=== PATIENT | female | born 1975 | race Caucasian/White ===

== ENCOUNTER 2021-04-26 15:07 | Emergency (ER) | payer OTHER ==
[2021-04-26 18:48] LABS: Urine Blood 3+ (Negative); Urine Glucose Negative (Negative); Urine Protein Negative (Negative); Urine Specific Gravity >=1.030 (1.005-1.030); Urine pH 6.5 (5.0-7.0)
--- NOTE | 2021-04-26 19:09 | RAD REPORT ---
EXAM DESCRIPTION: Maite Single View04/26/2021 6:44 pm CLINICAL HISTORY: Cough COMPARISON: none FINDINGS: Curvilinear lucency overlies the fourth anterior right rib. Lungs appear clear of acute infiltrate. Heart is normal size IMPRESSION: Curvilinear lucency overlies fourth anterior right rib. This may represent a nondisplace d fracture and should correlated clinically.
[2021-04-26 19:12] LABS: Barbiturates NEGATIVE (NEGATIVE); Benzodiazepines NEGATIVE (NEGATIVE); Cocaine NEGATIVE (NEGATIVE); METHAMPHETAM POSITIVE (NEGATIVE); Methadone NEGATIVE (NEGATIVE); Opiates NEGATIVE (NEGATIVE); Phencyclidine NEGATIVE (NEGATIVE); THC Cannibis NEGATIVE (NEGATIVE)
--- NOTE | 2021-04-26 19:22 | ER ---
Nurse's Notes [facility] Name: Allyn Cooper Age: 46 yrs Sex: Female : 1975 Arrival Date: 04/26/2021 Time: 15:09 Bed 13 Private MD: Diagnosis: Anxiety disorder, unspecified;Abuse of non-psychoactive substances;Adverse effect of amphetamines Presentation: 04/26 15:45 Chief complaint: Patient states: "I am coughing up stuff for about 2 weeks and they are aa5 everywhere now, it's in my mouth, in my skin and in my nails". 15:45 Coronavirus screen: At this time, the client does not indicate any symptoms associated aa5 with coronavirus-19. Ebola Screen: Patient negative for fever greater than or equal to 101.5 degrees Fahrenheit, and additional compatible Ebola Virus Disease symptoms. Initial Sepsis Screen: Does the patient meet any 2 criteria? No. Patient's initial sepsis screen is negative. Does the patient have a suspected source of infection? No. Patient's initial sepsis screen is negative. Risk Assessment: Do you want to hurt yourself or someone else? Patient reports no desire to harm self or others. Onset of symptoms was April 2021. 15:45 Method Of Arrival: Ambulatory aa5 15:45 Acuity: LAURA 4 aa5 Historical: - Allergies: 15:51 Codeine; aa5 - PMHx: 15:51 Eczema; Hypertension; PTSD; Drug Abuse; Anxiety; Depression; aa5 - Immunization history:: Adult Immunizations unknown. - Social history:: Smoking status: Patient denies any tobacco usage or history of. - Family history:: not pertinent. Screenin:31 Abuse screen: Denies threats or abuse. Nutritional screening: No deficits noted. vg1 Tuberculosis screening: No symptoms or risk factors identified. Fall Risk No fall in past 12 months (0 pts). No secondary diagnosis (0 pts). No IV (0 pts). Ambulatory Aid- None/Bed Rest/Nurse Assist (0 pts). Gait- Normal/Bed Rest/Wheelchair (0 pts) Mental Status- Oriented to own ability (0 pts). Total Javed Fall Scale indicates No Risk (0-24 pts). Assessment: 18:25 General: Appears in no apparent distress. uncomfortable, Behavior is cooperative, vg1 anxious. Pain: Denies pain. Neuro: Level of Consciousness is awake, alert, obeys commands, Oriented to person, place, time, situation. Cardiovascular: Patient's skin is warm and dry. Respiratory: Reports coughing up maggots Airway is patent Respiratory effort is even, unlabored. GI: Reports nausea. : No signs and/or symptoms were reported regarding the genitourinary system. EENT: No signs and/or symptoms were reported regarding the EENT system. Derm: Rash noted that is itchy, red, on upper back, back of neck, and scalp. Musculoskeletal: Circulation, motion, and sensation intact. Vital Signs: 15:45 BP 144 / 87; Pulse 101; Resp 20 S; Temp 98.0(TE); Pulse Ox 97% on R/A; aa5 18:31 BP 135 / 92; Pulse 92; Resp 18; Pulse Ox 100% on R/A; vg1 ED Course: 15:09 Patient arrived in ED. ds1 15:18 Patient's name was called from ER lobby. No response. aa5 15:29 Patient's name was called from ER lobby. No response. aa5 15:50 Triage completed. aa5 18:05 Marimar Diggs, RN is Primary Nurse. vg1 18:06 David Sandy MD is Attending Physician. jordan 18:31 Patient has correct armband on for positive identification. Call light in reach. Side vg1 rails up X 1. 18:31 Arm band placed on. vg1 18:44 Chest Single View XRAY In Process Unspecified. EDMI 19:21 Ravi Prater MD is Referral Physician. [facility] 19:39 No provider procedures requiring assistance completed. Patient did not have IV access vg1 during this emergency room visit. Administered Medications: 19:39 Not Given (Patient Refused): Doxycycline 100 mg PO once vg1 Outcome: 19:21 Discharge ordered by . jordan 19:39 Discharged to home ambulatory. vg1 19:39 Condition: stable 19:39 Discharge instructions given to patient, Instructed on discharge instructions, follow up and referral plans. medication usage, Demonstrated understanding of instructions, follow-up care, medications, Prescriptions given X 2. 19:39 Patient left the ED. vg1 Signatures: Dispatcher [employer] EDMS David Sandy MD MD cha Sanford, Demi ds1 Melania Brenner, RN RN aa5 Marimar Diggs RN RN vg1
--- NOTE | 2021-04-26 19:22 | EDPHYS ---
Physician Documentation [facility] Name: Allyn Cooper Age: 46 yrs Sex: Female : 1975 Arrival Date: 04/26/2021 Time: 15:09 Bed 13 Private MD: ED Physician David Sandy HPI: 04/26 18:23 This 46 yrs old Female presents to ER via Ambulatory with complaints of jordan Coughing up [place]. 18:23 The patient presents to the emergency department with anxiety, a history of substance jordan abuse. Onset: The symptoms/episode began/occurred 5 day(s) ago. Past psychiatric history: Prior diagnosis: depression. The patient or guardian reports cough, that is intermittent. Modifying factors: The symptoms are alleviated by nothing. the symptoms are aggravated by nothing. Associated signs and symptoms: The patient has no apparent associated signs or symptoms. Historical: - Allergies: 15:51 Codeine; aa5 - PMHx: 15:51 Eczema; Hypertension; PTSD; Drug Abuse; Anxiety; Depression; aa5 - Immunization history:: Adult Immunizations unknown. - Social history:: Smoking status: Patient denies any tobacco usage or history of. - Family history:: not pertinent. ROS: 18:23 Constitutional: Negative for fever, chills, and weight loss, Eyes: Negative for injury, jordan pain, redness, and discharge, ENT: Negative for injury, pain, and discharge, Neck: Negative for injury, pain, and swelling, Cardiovascular: Negative for chest pain, palpitations, and edema, Abdomen/GI: Negative for abdominal pain, nausea, vomiting, diarrhea, and constipation, Back: Negative for injury and pain, : Negative for injury, bleeding, discharge, and swelling, MS/Extremity: Negative for injury and deformity, Skin: Negative for injury, rash, and discoloration, Neuro: Negative for headache, weakness, numbness, tingling, and seizure, Allergy/Immunology: Negative for hives, rash, and allergies, Endocrine: Negative for neck swelling, polydipsia, polyuria, polyphagia, and marked weight changes, Hematologic/Lymphatic: Negative for swollen nodes, abnormal bleeding, and unusual bruising. 18:23 Respiratory: Positive for cough. 18:23 Psych: Positive for anxiety, visual hallucinations. Exam: 18:23 Constitutional: This is a well developed, well nourished patient who is awake, alert, jordan and in no acute distress. Head/Face: Normocephalic, atraumatic. Eyes: Pupils equal round and reactive to light, extra-ocular motions intact. Lids and lashes normal. Conjunctiva and sclera are non-icteric and not injected. Cornea within normal limits. Periorbital areas with no swelling, redness, or edema. ENT: Nares patent. No nasal discharge, no septal abnormalities noted. Tympanic membranes are normal and external auditory canals are clear. Oropharynx with no redness, swelling, or masses, exudates, or evidence of obstruction, uvula midline. Mucous membranes moist. Neck: Trachea midline, no thyromegaly or masses palpated, and no cervical lymphadenopathy. Supple, full range of motion without nuchal rigidity, or vertebral point tenderness. No Meningismus. Chest/axilla: Normal chest wall appearance and motion. Nontender with no deformity. No lesions are appreciated. Cardiovascular: Regular rate and rhythm with a normal S1 and S2. No gallops, murmurs, or rubs. Normal PMI, no JVD. No pulse deficits. Respiratory: Lungs have equal breath sounds bilaterally, clear to auscultation and percussion. No rales, rhonchi or wheezes noted. No increased work of breathing, no retractions or nasal flaring. Abdomen/GI: Soft, non-tender, with normal bowel sounds. No distension or tympany. No guarding or rebound. No evidence of tenderness throughout. Back: No spinal tenderness. No costovertebral tenderness. Full range of motion. Female : Normal external genitalia. Skin: Warm, dry with normal turgor. Normal color with no rashes, no lesions, and no evidence of cellulitis. MS/ Extremity: Pulses equal, no cyanosis. Neurovascular intact. Full, normal range of motion. Neuro: Awake and alert, GCS 15, oriented to person, place, time, and situation. Cranial nerves II-XII grossly intact. Motor strength 5/5 in all extremities. Sensory grossly intact. Cerebellar exam normal. Normal gait. Psych: Awake, alert, with orientation to person, place and time. Behavior, mood, and affect are within normal limits. Vital Signs: 15:45 BP 144 / 87; Pulse 101; Resp 20 S; Temp 98.0(TE); Pulse Ox 97% on R/A; aa5 18:31 BP 135 / 92; Pulse 92; Resp 18; Pulse Ox 100% on R/A; vg1 MDM: 18:06 Patient medically screened. [facility] 18:25 Antibiotic administration: The patient is discharged and will get outpatient [facility] antibiotics, Doxycycline. Differential diagnosis: bronchitis, URI, acute psychotic break, depression. Data reviewed: vital signs, nurses notes, lab test result(s), radiologic studies. Data interpreted: farebox repairer: rate is 101 beats/min, rhythm is normal sinus rhythm, Pulse oximetry: on room air is 97 %. Test interpretation: by ED physician or midlevel provider: plain radiologic studies. Counseling: I had a detailed discussion with the patient and/or guardian regarding: the historical points, exam findings, and any diagnostic results supporting the discharge/admit diagnosis, radiology results. 04/26 18:07 Order name: UDS [facility] 04/26 18:07 Order name: Urine Drug Screen; Complete Time: 19:20 [facility] 04/26 18:07 Order name: Chest Single View XRAY; Complete Time: 19:12 [facility] 04/26 18:48 Order name: Urine Dipstick-Ancillary; Complete Time: 19:12 [facility] 04/26 18:58 Order name: Urine --Ancillary (enter results); Complete Time: 19:20 04/26 18:07 Order name: Urine Dipstick-Ancillary (obtain specimen); Complete Time: 19:00 [facility] 04/26 18:23 Order name: Urine Test (obtain specimen); Complete Time: 19:00 [facility] Administered Medications: 19:39 Not Given (Patient Refused): Doxycycline 100 mg PO once vg1 Disposition: 04/26/21 19:21 Discharged to Home. Impression: Anxiety disorder, unspecified, Abuse of non-psychoactive substances, Adverse effect of amphetamines. - Condition is Stable. - Discharge Instructions: Stimulant Use Disorder-Amphetamines, Substance Use Disorder, Stimulant Use Disorder-Methamphetamines. - Prescriptions for Hydroxyzine HCl 25 mg Oral Tablet - take 1 tablet by ORAL route every 6 hours As needed; 30 tablet. Doxycycline Hyclate 100 mg Oral Tablet - take 1 tablet by ORAL route every 12 hours; 20 tablet. - Medication Reconciliation Form, Thank You Letter, Antibiotic Education, Prescription Opioid Use form. - Follow up: Private Physician; When: 2 - 3 days; Reason: Recheck today's complaints, Continuance of care, Re-evaluation by your physician. Follow up: Ravi Prater; When: 2 - 3 days; Reason: Recheck today's complaints, Re-evaluation by your physician. - Problem is new. - Symptoms have improved. Signatures: Dispatcher [employer] EDDavid Sandoval MD MD cha Calderon, Audri, RN RN aa5 Marimar Diggs RN RN vg1 Corrections: (The following items were deleted from the chart) 19:39 19:21 04/26/2021 19:21 Discharged to Home. Impression: Anxiety disorder, unspecified; vg1 Abuse of non-psychoactive substances; Adverse effect of amphetamines. Condition is Stable. Discharge Instructions: Stimulant Use Disorder-Amphetamines, Substance Use Disorder, Stimulant Use Disorder-Methamphetamines. Prescriptions for Hydroxyzine HCl 25 mg Oral Tablet - take 1 tablet by ORAL route every 6 hours As needed; 30 tablet, Doxycycline Hyclate 100 mg Oral Tablet - take 1 tablet by ORAL route every 12 hours; 20 tablet. and Forms are Medication Reconciliation Form, Thank You Letter, Antibiotic Education, Prescription Opioid Use. Follow up: Private Physician; When: 2 - 3 days; Reason: Recheck today's complaints, Continuance of care, Re-evaluation by your physician. Follow up: Ravi Prater; When: 2 - 3 days; Reason: Recheck today's complaints, Re-evaluation by your physician. Problem is new. Symptoms have improved. jordan
[2021-04-26] MEDS ORDERED: DOXYCYCLINE 100 MG CAP PO ONE (19:43)
[2021-04-26 19:44] VITALS: TEMP 98
[2021-04-26 19:46] VITALS: BP 135/92; O2SAT 100
== END 2021-04-26 19:39 | disposition home or self-care (01) ==
LOC: ER 15:07
DX: F41.8 Other specified anxiety disorders (principal); F55.8 Abuse of other non-psychoactive substances; T43.625A Adverse effect of amphetamines, initial encounter; I10 Essential (primary) hypertension; Z88.5 Allergy status to narcotic agent
CPT/HCPCS: 71045; 80307; 81003; 81025; 99283

== ENCOUNTER 2021-10-01 17:37 | Emergency (ER) | payer OTHER ==
[2021-10-01 20:10] LABS: Absolute Lymphocytes (CBC) 2.1 K/uL (0.7-4.9); Hematocrit 39.3 % (36.0-45.0); Lymphocytes % 20.5 % (15.3-44.8); MPV 8.8 fL (7.6-11.3); RBC Red Blood Cell Count 4.72 M/uL (3.86-4.86)
[2021-10-01 20:18] LABS: Protime INR 0.99
[2021-10-01 20:45] LABS: ALT/SGPT 15 U/L (12-78); AST/SGOT 11 U/L (15-37); Albumin 3.9 g/dL (3.4-5.0); Alkaline Phosphatase 77 U/L (45-117); BUN Blood Urea Nitrogen 14 mg/dL (7-18); Bicarbonate 29 mmol/L (21-32); Bilirubin Direct < 0.1 mg/dL (0-0.2); Bilirubin Total 0.4 mg/dL (0.2-1.0); Glucose Level 87 mg/dL (74-106); Potassium 3.8 mmol/L (3.5-5.1); Protein, Total 7.5 g/dL (6.4-8.2); Sodium Level 142 mmol/L (136-145)
--- NOTE | 2021-10-01 20:51 | EDPHYS ---
Physician Documentation [facility] Name: Allyn Cooper Age: 46 yrs Sex: Female : 1975 Arrival Date: 10/01/2021 Time: 17:44 Bed 16 Private MD: ED Physician David Sandy HPI: 10/01 20:45 This 46 yrs old Female presents to ER via Ambulatory with complaints of jordan Suicidal Ideation, Leg Pain. 20:45 The patient presents to the emergency department with anxiety, depression, over a jordan , the patient's mother, suicide ideation, but the patient has no formulated plan. Onset: The symptoms/episode began/occurred 5 day(s) ago. Past psychiatric history: Prior diagnosis: addiction history, depression. Associated signs and symptoms: Pertinent positives; suicide ideation. Severity of symptoms: At their worst the symptoms were mild moderate in the emergency department the symptoms are unchanged. The patient has experienced similar episodes in the past, multiple times. 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 - Social history:: Smoking status: Patient denies any tobacco usage or history of. - Family history:: not pertinent. ROS: 20:45 Constitutional: Negative for fever, chills, and weight loss, Eyes: Negative for injury, jordan pain, redness, and discharge, ENT: Negative for injury, pain, and discharge, Neck: Negative for injury, pain, and swelling, Cardiovascular: Negative for chest pain, palpitations, and edema, Respiratory: Negative for shortness of breath, cough, wheezing, and pleuritic chest pain, Abdomen/GI: Negative for abdominal pain, nausea, vomiting, diarrhea, and constipation, Back: Negative for injury and pain, : Negative for injury, bleeding, discharge, and swelling, MS/Extremity: Negative for injury and deformity, Skin: Negative for injury, rash, and discoloration, Psych: Negative for depression, anxiety, suicide ideation, homicidal ideation, and hallucinations, Allergy/Immunology: Negative for hives, rash, and allergies, Endocrine: Negative for neck swelling, polydipsia, polyuria, polyphagia, and marked weight changes, Hematologic/Lymphatic: Negative for swollen nodes, abnormal bleeding, and unusual bruising. 20:45 Neuro: Positive for 20:45 Psych: Positive for anxiety, depression, suicidal ideation. Exam: 20:45 Constitutional: This is a well developed, well nourished patient who is awake, alert, jordan and in no acute distress. Head/Face: Normocephalic, atraumatic. Eyes: Pupils equal round and reactive to light, extra-ocular motions intact. Lids and lashes normal. Conjunctiva and sclera are non-icteric and not injected. Cornea within normal limits. Periorbital areas with no swelling, redness, or edema. ENT: Nares patent. No nasal discharge, no septal abnormalities noted. Tympanic membranes are normal and external auditory canals are clear. Oropharynx with no redness, swelling, or masses, exudates, or evidence of obstruction, uvula midline. Mucous membranes moist. Neck: Trachea midline, no thyromegaly or masses palpated, and no cervical lymphadenopathy. Supple, full range of motion without nuchal rigidity, or vertebral point tenderness. No Meningismus. Chest/axilla: Normal chest wall appearance and motion. Nontender with no deformity. No lesions are appreciated. Cardiovascular: Regular rate and rhythm with a normal S1 and S2. No gallops, murmurs, or rubs. Normal PMI, no JVD. No pulse deficits. Respiratory: Lungs have equal breath sounds bilaterally, clear to auscultation and percussion. No rales, rhonchi or wheezes noted. No increased work of breathing, no retractions or nasal flaring. Abdomen/GI: Soft, non-tender, with normal bowel sounds. No distension or tympany. No guarding or rebound. No evidence of tenderness throughout. Back: No spinal tenderness. No costovertebral tenderness. Full range of motion. Skin: Warm, dry with normal turgor. Normal color with no rashes, no lesions, and no evidence of cellulitis. MS/ Extremity: Pulses equal, no cyanosis. Neurovascular intact. Full, normal range of motion. Neuro: Awake and alert, GCS 15, oriented to person, place, time, and situation. Cranial nerves II-XII grossly intact. Motor strength 5/5 in all extremities. Sensory grossly intact. Cerebellar exam normal. Normal gait. Vital Signs: 18:04 Pulse 89; Resp 18; Temp 99.0(TE); Pulse Ox 97% on R/A; Weight 74.84 kg; Height 5 ft. 6 ss in. (167.64 cm); Pain 0/10; 18:07 BP 172 / 107; ss 22:00 BP 143 / 82; Pulse 79; Resp 17; Pulse Ox 100% on R/A; Pain 0/10; dc2 10/02 01:10 BP 148 / 77; Pulse 68; Resp 17; Temp 97; Pulse Ox 99% on R/A; Pain 0/10; dc2 10/01 18:04 Body Mass Index 26.63 (74.84 kg, 167.64 cm) ss MDM: 10/01 20:15 Patient medically screened. [facility] 20:48 Differential diagnosis: acute psychotic break, depression. Data reviewed: vital signs, [facility] nurses notes, lab test result(s), EKG. Data interpreted: residential monitor: rate is 89 beats/min, rhythm is regular. Test interpretation: by ED physician or midlevel provider: ECG. Counseling: I had a detailed discussion with the patient and/or guardian regarding: the historical points, exam findings, and any diagnostic results supporting the discharge/admit diagnosis, lab results, radiology results, the need to transfer to another facility, for higher level of care, [facility] does not immediately have the required specialist. 10/01 19:25 Order name: COVID-19 SARS RT PCR (Document "Date of Onset" if Symptomatic) tt3 10/01 19:25 Order name: SARS-COV-2 RT PCR; Complete Time: 22:34 EDWI 10/01 19:45 Order name: Acetaminophen em 10/01 19:45 Order name: Basic Metabolic Panel 10/01 19:45 Order name: CBC with Diff em 10/01 19:45 Order name: ETOH Level em 10/01 19:45 Order name: Hepatic Function; Complete Time: 22:34 10/01 19:45 Order name: PT-INR; Complete Time: 22:34 10/01 19:45 Order name: Ptt, Activated; Complete Time: 22:34 10/01 19:45 Order name: Salicylate; Complete Time: 22:34 10/01 19:45 Order name: Urine Drug Screen; Complete Time: 22:34 em 10/01 19:46 Order name: Acetaminophen Level; Complete Time: 22:34 EDMS 10/01 19:46 Order name: Basic Metabolic Panel; Complete Time: 22:34 EDMS 10/01 19:46 Order name: CBC with Automated Diff; Complete Time: 22:34 EDMS 10/01 19:45 Order name: EKG - Nurse/Tech em 10/01 19:45 Order name: IV Saline Lock em 10/01 19:45 Order name: Labs collected and sent em 10/01 19:45 Order name: Suicide Screening ([place]) em 10/01 19:45 Order name: Urine Dipstick-Ancillary (obtain specimen) em 10/01 19:46 Order name: Alcohol Serum/Plasma; Complete Time: 22:34 EDMS Administered Medications: No medications were administered Disposition Summary: 10/01/21 20:50 Transfer Ordered Transfer Location: Psych Facility jordan Reason: Higher level of care jordan Condition: Stable jordan Problem: new jordan Symptoms: have improved jordan Accepting Physician: to psych(10/02/21 01:44) dc2 Diagnosis - Adjustment disorder with depressed mood jordan - Major depressive disorder, single episode, moderate jordan - Major depressive disorder, recurrent, moderate jordan - Suicidal ideations jordan Forms: - Medication Reconciliation Form jordan - SBAR form jordan Signatures: Dispatcher [employer] David Sands MD MD cha Munoz, Edgar, RN Tere Johnson RN RN Darcie Little RN RN dc2 Corrections: (The following items were deleted from the chart) 10/02 01:44 10/01 20:50 to psych jordan dc2
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
[2021-10-01 21:11] LABS: Barbiturates NEGATIVE (NEGATIVE); Benzodiazepines NEGATIVE (NEGATIVE); Cocaine NEGATIVE (NEGATIVE); METHAMPHETAM NEGATIVE (NEGATIVE); Methadone NEGATIVE (NEGATIVE); Opiates NEGATIVE (NEGATIVE); Phencyclidine NEGATIVE (NEGATIVE); THC Cannibis NEGATIVE (NEGATIVE)
[2021-10-02 01:50] VITALS: TEMP 99; O2SAT 97
[2021-10-02 01:51] VITALS: BP 172/107
== END 2021-10-02 01:44 ==
LOC: ER 17:37
DX: F43.21 Adjustment disorder with depressed mood (principal); F33.9 Major depressive disorder, recurrent, unspecified; R45.851 Suicidal ideations; Z20.822 Contact with and (suspected) exposure to COVID-19
CPT/HCPCS: 85025; 80048; 36415; 80320; 80329 ×2; 85610; 80076; 85730; 80307; 99285; U0003